=== PATIENT | female | born 1980 | race Caucasian/White ===

== ENCOUNTER 2021-09-05 22:30 | Emergency (ER) | payer OTHER ==
[2021-09-06 05:40] LABS: HEMOGLOBIN 11.5 gm/dl (12.3-15.3); WHITE BLOOD COUNT 6.4 K/UL (4.5-11.0)
[2021-09-06 06:30] LABS: BUN/CREATININE RATIO 8 (0-10)
[2021-09-06] MEDS ORDERED: CEPHALEXIN500 M1 PO (06:45)
[2021-09-06] MEDS ORDERED: K-TAB ER20 MEQ PO (06:45)
== END 2021-09-06 07:30 | disposition home or self-care (01) ==
LOC: ER1 22:30
PROVIDERS: Student in an Organized Health Care Education/Training Program
DX: L03.115 Cellulitis of right lower limb (principal); E87.6 Hypokalemia; F17.200 Nicotine dependence, unspecified, uncomplicated
CPT/HCPCS: 80053; 83605; 85025; 96372; 99283; J0696

== ENCOUNTER 2021-09-08 21:21 | Emergency (ER) | payer OTHER ==
[~2021-09-08 21:21] MED LIST: CEPHALEXIN500 M1 PO; K-TAB ER20 MEQ PO
[2021-09-09] MEDS ORDERED: VISTARIL 25 MG25 MG PO (01:25)
== END 2021-09-09 01:42 | disposition home or self-care (01) ==
LOC: ER1 21:21
DX: R21 Rash and other nonspecific skin eruption (principal); F17.200 Nicotine dependence, unspecified, uncomplicated; Z88.0 Allergy status to penicillin
CPT/HCPCS: 99282

== ENCOUNTER 2021-09-23 23:14 | Emergency (ER) | payer OTHER ==
[~2021-09-23 23:14] MED LIST changes: +VISTARIL 25 MG25 MG PO
== END 2021-09-24 02:26 | disposition home or self-care (01) ==
LOC: ER1 23:14
DX: S01.112A Laceration without foreign body of left eyelid and periocular area, initial encounter (principal); F17.200 Nicotine dependence, unspecified, uncomplicated; I25.10 Atherosclerotic heart disease of native coronary artery without angina pectoris; W22.8XXA Striking against or struck by other objects, initial encounter; Y92.009 Unspecified place in unspecified non-institutional (private) residence as the place of occurrence of the external cause
CPT/HCPCS: 12011; 99282